=== PATIENT | female | born 1940 | race Caucasian/White ===

== ENCOUNTER → 2018-08-29 | Outpatient (CLI) | payer OTHER ==
[~2018-08-29] MED LIST: ZOFRAN4 MG PO
== END | disposition home or self-care (01) ==
LOC: RESCLI 13:00
DX: E66.9 Obesity, unspecified (principal); R00.1 Bradycardia, unspecified; I10 Essential (primary) hypertension; I25.10 Atherosclerotic heart disease of native coronary artery without angina pectoris; E78.5 Hyperlipidemia, unspecified; G47.00 Insomnia, unspecified; Z76.89 Persons encountering health services in other specified circumstances; Z79.899 Other long term (current) drug therapy; Z88.0 Allergy status to penicillin

== ENCOUNTER 2020-01-15 11:22 | Inpatient (IN) | payer OTHER ==
[~2020-01-15] VITALS: Ht 167.6 cm; Wt 82.2 kg
[2020-01-15] VITALS (9 sets, daily range): BP systolic 114–157; BP diastolic 40–85
[2020-01-15 12:10] LABS: BASO % 0.2 % (0.0-1.0); EOS # 0.1 10*3/uL (0.0-0.4); EOS % 0.5 % (1.0-4.0); HEMATOCRIT 39.3 % (37.0-47.0); LYMPH # 1.1 10*3/uL (1.3-4.4); LYMPH % 6.3 % (27.0-41.0); MEAN CELL VOLUME 93.6 fl (81.0-99.0); MEAN CORPUSCULAR HGB 31.4 pg (27.0-31.0); MEAN CORPUSCULAR HGB CONC 33.6 g/dl (33.0-37.0); MEAN PLATELET VOLUME 10.9 fl (9.6-12.3); MONO # 1.1 10*3/uL (0.1-1.0); MONO % 6.2 % (3.0-9.0); NEUT # 14.7 10*3/uL (2.3-7.9); NEUT % 86.3 % (47.0-73.0); PLATELET COUNT AUTOMATED 201 10*3/uL (130-400); RED CELL DISTRI WIDTH 12.6 % (0-14.5)
[2020-01-15 12:20] LABS: ACT PARTIAL THROMBO TIME 28.1 SECONDS (20.0-32.1)
[2020-01-15 12:25] LABS: ALBUMIN 3.2 gm/dl (3.1-4.5); ALKALINE PHOSPHATASE 107 U/L (45-117); BUN 22 mg/dl (7-24); CHLORIDE 107 mmol/L (98-107); CREATININE 0.79 mg/dL (0.55-1.02); LIPASE 80 U/L (73-393); SGOT/AST 18 IU/L (3-35); SGPT/ALT 21 U/L (12-78); SODIUM 137 mmol/L (136-145)
--- NOTE | 2020-01-15 13:14 | NUR ---
THE PATIENTS HEART RATE INCREASED TO 135. I CHECKED ON THE PATIENT SHE WAS SITTING QUIETLY ON THE BED. SHE DENIES ANY CHEST PAIN. THE ED DOCTOR WAS NOTIFIED
[2020-01-15 13:21] LABS: COLOR YELLOW (YELLOW)
[2020-01-15 13:22] LABS: BILIRUBIN NEGATIVE (NEGATIVE); BLOOD NEGATIVE (NEGATIVE); CLARITY SL CLOUDY (CLEAR); GLUCOSE NEGATIVE (NEGATIVE); KETONE NEGATIVE (NEGATIVE); LEUKO ESTERASE NEGATIVE (NEGATIVE); NITRITE NEGATIVE (NEGATIVE); SPECIFIC GRAVITY 1.015 (1.005-1.030); UROBILINOGEN 0.2 E.U./dl (0.2-1.0)
[2020-01-15] MEDS ORDERED: METOPROLOL SUCC25 M2 PO (13:22)
[2020-01-15] MEDS ORDERED: ATORVASTATIN CA80 M1 PO (13:23)
[2020-01-15] MEDS ORDERED: LISINOPRIL10 M1 PO (13:23)
[2020-01-15] MEDS ORDERED: ZOLPIDEM10 MG PO (13:23)
[2020-01-15] MEDS ORDERED: MELOXICAM15 MG PO (13:23)
[2020-01-15 13:29] LABS: BACTERIA 1+
--- NOTE | 2020-01-15 16:27 | NUR ---
THIS NURSE WENT OVER THE HOME MEDS WITH THE PATIENT
--- NOTE | 2020-01-15 18:10 | NUR ---
A 79, admitted to 4E, under the services of SABA Rodriguez DO with a diagnosis of AFIB WITH RVR. Chief complaint is ABDOMINAL PAIN. Patient arrived via ambulatory from ER. Monitor applied. Initial assessment completed. Vital signs taken and recorded. SABA RODRIGUEZ DO notified of admission to the unit. Orders received. See assessment for past medical history, medications and allergies. Patient and/or family oriented to unit. [facility] visitation policy reviewed. Clothing/patient valuable form completed. ARLEEN RODRIGUEZ
--- NOTE | 2020-01-15 19:14 | NUR ---
NOTIFIED DR WEST OF NEW CONSULT FOR CT RESULTS.
--- NOTE | 2020-01-15 22:28 | NUR ---
PRN TRAZADONE GIVEN PO AT THIS TIME AT PATIENT REQUEST FOR SLEEP AID. A&O X3, CALL LIGHT WITHIN REACH, WILL CONTIMUE TO MONITOR. BED ALARM ON AND FUNCTIONAL
[2020-01-16] VITALS: BP 113/60
--- NOTE | 2020-01-16 04:00 | NUR ---
24 HOUR CHART CHECK COMPLETE
[2020-01-16 06:27] LABS: ALBUMIN 2.8 gm/dl (3.1-4.5); BUN 16 mg/dl (7-24); CHLORIDE 111 mmol/L (98-107); CHOLESTEROL 115 mg/dL (<200); CREATININE 0.75 mg/dL (0.55-1.02); POTASSIUM 3.4 mmol/L (3.5-5.1); SGOT/AST 12 IU/L (3-35); SGPT/ALT 16 U/L (12-78); SODIUM 140 mmol/L (136-145); TRIGLYCERIDES 91 mg/dl (<150); VLDL CHOLESTEROL 18 mg/dL (6-40)
[2020-01-16 06:30] LABS: BASO % 0.2 % (0.0-1.0); EOS # 0.1 10*3/uL (0.0-0.4); EOS % 0.7 % (1.0-4.0); HEMATOCRIT 37.3 % (37.0-47.0); LYMPH # 1.8 10*3/uL (1.3-4.4); LYMPH % 12.8 % (27.0-41.0); MEAN CELL VOLUME 96.1 fl (81.0-99.0); MEAN CORPUSCULAR HGB 31.2 pg (27.0-31.0); MEAN CORPUSCULAR HGB CONC 32.4 g/dl (33.0-37.0); MEAN PLATELET VOLUME 11.6 fl (9.6-12.3); MONO # 1.2 10*3/uL (0.1-1.0); MONO % 8.1 % (3.0-9.0); NEUT % 77.8 % (47.0-73.0); PLATELET COUNT AUTOMATED 186 10*3/uL (130-400); RED BLOOD COUNT 3.88 10*6/uL (4.10-5.10); RED CELL DISTRI WIDTH 13.2 % (0-14.5); WHITE BLOOD COUNT 14.2 10*3/uL (4.8-10.8)
[2020-01-16 06:35] LABS: ALKALINE PHOSPHATASE 66 U/L (45-117); FREE T4 0.98 ng/dl (0.76-1.46); HDL CHOLESTEROL 37 mg/dl (40-60); LDL CHOLESTEROL 60 mg/dL (9-159); THYROID STIM HORMONE (HS) 0.759 uIU/ml (0.358-4.75); TOTAL PROTEIN 6.2 gm/dL (6.4-8.2)
[2020-01-16 08:00] VITALS: BP 119/44
--- NOTE | 2020-01-16 09:00 | NUR ---
[employer]othouse Worker in to talk to patient. Patient states lives at home with her . There are 0 steps in the home. Physician: Dr. London Raman [facility] Home health services: none Patient's level of ADLs: INDEPENDENT Patient has working utilities: yes DME: none Follow-up physician's appointment after d/c: will be made by the hospitalist nurse director upon discharge Does patient want to access PORTAL?: no Discharge plan discussed with patient. She is sitting on the edge of her bed. She lives at home with her . She states she is independent in her ADLs and ambulation. Discussed home health care services and she declines. CM will continue to follow for any discharge planning needs. When medically stable she will be discharged to home. She states she is unsure of transportation on discharge at this time as her no longer drive, her daughter works afternoon shift, and her son works. She states it just depends on when she is discharged as to how she is going to get home. JEAN PAUL WALTER
[2020-01-16 12:00] VITALS: BP 119/59
--- NOTE | 2020-01-16 12:04 | NUR ---
BUTTONER OLIVERA CHECKED XARELTO WITH [facility]. PER PHARMACIST INSURANCE WILL NOT COVER FOR MORE THAN 1 DOSE A DAY, AND IT WOULD BE $375.69 FOR A MONTH SUPPLY. BUTTONER HAD THEM RUN XARELTO 10 BID FOR 20 DAYS. BUTTONER NOTIFIED RN HOSPITALIST COORDINATOR KIARA.
[2020-01-16] MEDS ORDERED: XARE20MG PO (13:21)
[2020-01-16] MEDS ORDERED: METOPROLOL SUCC25 M2 PO (13:21)
[2020-01-16] MEDS ORDERED: FLAGYL500 MG PO (13:24)
[2020-01-16] MEDS ORDERED: CIPRO500 MG PO (13:24)
--- NOTE | 2020-01-16 14:11 | NUR ---
Discharge instructions reviewed with patient/family. Patient receptive and verbalizes understanding. Follow-up care arranged. Written instructions given to patient/family. ARLEEN RODRIGUEZ
== END 2020-01-16 14:11 | disposition home or self-care (01) | DRG 392 ==
LOC: ED 11:22 → EDHOLD 13:43 → 4E 13:43 → EDHOLD 15:00 → 4E 17:00
PROVIDERS: Family Medicine; Registered Nurse; ADMIT Internal Medicine
DX: K29.80 Duodenitis without bleeding (principal); E44.0 Moderate protein-calorie malnutrition; K57.80 Diverticulitis of intestine, part unspecified, with perforation and abscess without bleeding; I10 Essential (primary) hypertension; M79.7 Fibromyalgia; K52.9 Noninfective gastroenteritis and colitis, unspecified; D72.829 Elevated white blood cell count, unspecified; I25.10 Atherosclerotic heart disease of native coronary artery without angina pectoris; E78.2 Mixed hyperlipidemia; E87.6 Hypokalemia; I48.0 Paroxysmal atrial fibrillation; R73.9 Hyperglycemia, unspecified; Z82.49 Family history of ischemic heart disease and other diseases of the circulatory system; Z88.0 Allergy status to penicillin; Z88.2 Allergy status to sulfonamides; Z79.01 Long term (current) use of anticoagulants; Z68.29 Body mass index [BMI] 29.0-29.9, adult; K29.70 Gastritis, unspecified, without bleeding

== ENCOUNTER → 2021-07-07 | Outpatient (CLI) | payer OTHER ==
[~2021-07-07] MED LIST changes: +ATORVASTATIN CA80 M1 PO; +CIPRO500 MG PO; +FLAGYL500 MG PO; +LISINOPRIL10 M1 PO; +MELOXICAM15 MG PO; +METOPROLOL SUCC25 M2 PO; +XARE20MG PO; +ZOLPIDEM10 MG PO
== END | disposition home or self-care (01) ==
LOC: RESCLI 09:10
PROVIDERS: ATTEND Student in an Organized Health Care Education/Training Program
DX: I10 Essential (primary) hypertension (principal); G47.33 Obstructive sleep apnea (adult) (pediatric); I48.91 Unspecified atrial fibrillation; Z79.899 Other long term (current) drug therapy; Z98.890 Other specified postprocedural states

== ENCOUNTER → 2022-08-05 | Outpatient (CLI) | payer OTHER | END | disposition home or self-care (01) | LOC: RESCLI 15:05 | PROVIDERS: ATTEND Internal Medicine | DX: E78.5 Hyperlipidemia, unspecified (principal); G47.00 Insomnia, unspecified; I48.91 Unspecified atrial fibrillation; I10 Essential (primary) hypertension; L20.9 Atopic dermatitis, unspecified; Z82.49 Family history of ischemic heart disease and other diseases of the circulatory system; Z98.890 Other specified postprocedural states; Z79.01 Long term (current) use of anticoagulants; Z79.82 Long term (current) use of aspirin; Z79.899 Other long term (current) drug therapy ==

== ENCOUNTER → 2023-04-18 | Outpatient (CLI) | payer OTHER ==
[2023-04-18 10:14] LABS: BASO % 0.5 % (0.0-1.0); EOS # 0.4 10*3/uL (0.0-0.4); EOS % 4.6 % (1.0-4.0); HEMATOCRIT 39.3 % (37.0-47.0); LYMPH # 2.1 10*3/uL (1.3-4.4); LYMPH % 24.7 % (27.0-41.0); MEAN CELL VOLUME 95.2 fl (81.0-99.0); MEAN CORPUSCULAR HGB 31.7 pg (27.0-31.0); MEAN CORPUSCULAR HGB CONC 33.3 g/dl (33.0-37.0); MEAN PLATELET VOLUME 10.5 fl (9.6-12.3); MONO # 0.6 10*3/uL (0.1-1.0); MONO % 7.7 % (3.0-9.0); NEUT # 5.2 10*3/uL (2.3-7.9); NEUT % 62.3 % (47.0-73.0); PLATELET COUNT AUTOMATED 227 10*3/uL (130-400); RED BLOOD COUNT 4.13 10*6/uL (4.10-5.10); RED CELL DISTRI WIDTH 13.3 % (0-14.5); WHITE BLOOD COUNT 8.4 10*3/uL (4.8-10.8)
[2023-04-18 11:07] LABS: FREE T4 0.96 ng/dl (0.89-1.76)
== END | disposition home or self-care (01) ==
LOC: LAB 09:38
PROVIDERS: ATTEND Internal Medicine
DX: N18.4 Chronic kidney disease, stage 4 (severe) (principal); D63.1 Anemia in chronic kidney disease

== ENCOUNTER 2023-05-06 10:44 | Emergency (ER) | payer OTHER ==
[~2023-05-06] VITALS: Ht 165.1 cm; Wt 77.1 kg
[2023-05-06] MEDS ORDERED: ELIQUIS5 M1 PO (11:03)
[2023-05-06] MEDS ORDERED: SOTALOL80 MG PO (11:08)
[2023-05-06 11:32] LABS: BASO # 0.1 10*3/uL (0.0-0.1); BASO % 0.5 % (0.0-1.0); EOS # 0.4 10*3/uL (0.0-0.4); EOS % 3.8 % (1.0-4.0); HEMATOCRIT 36.7 % (37.0-47.0); LYMPH # 0.7 10*3/uL (1.3-4.4); LYMPH % 7.9 % (27.0-41.0); MEAN CELL VOLUME 94.1 fl (81.0-99.0); MEAN CORPUSCULAR HGB 31.8 pg (27.0-31.0); MEAN CORPUSCULAR HGB CONC 33.8 g/dl (33.0-37.0); MEAN PLATELET VOLUME 10.6 fl (9.6-12.3); MONO # 0.9 10*3/uL (0.1-1.0); MONO % 10.1 % (3.0-9.0); NEUT # 7.2 10*3/uL (2.3-7.9); NEUT % 77.5 % (47.0-73.0); PLATELET COUNT AUTOMATED 243 10*3/uL (130-400); RED CELL DISTRI WIDTH 12.8 % (0-14.5); WHITE BLOOD COUNT 9.3 10*3/uL (4.8-10.8)
[2023-05-06 12:14] LABS: POTASSIUM 4.4 mmol/L (3.4-5.1); TOTAL PROTEIN 6.7 gm/dL (6.0-8.0)
[2023-05-06] MEDS ORDERED: CYCLOBENZAPRINE5 M3 PO (13:42)
== END 2023-05-06 14:04 | disposition home or self-care (01) ==
LOC: ED 10:44
PROVIDERS: Physician Assistant Medical
DX: M62.838 Other muscle spasm (principal); M79.7 Fibromyalgia; I10 Essential (primary) hypertension; I48.91 Unspecified atrial fibrillation; E78.00 Pure hypercholesterolemia, unspecified; E78.5 Hyperlipidemia, unspecified; Z88.0 Allergy status to penicillin; Z88.2 Allergy status to sulfonamides; Z88.8 Allergy status to other drugs, medicaments and biological substances; Z98.890 Other specified postprocedural states; Z95.5 Presence of coronary angioplasty implant and graft; Z90.89 Acquired absence of other organs

== ENCOUNTER → 2023-11-09 | Outpatient (CLI) | payer MEDICARE ==
[~2023-11-09] MED LIST changes: +CYCLOBENZAPRINE5 M3 PO; +ELIQUIS5 M1 PO; +SOTALOL80 MG PO
== END | disposition home or self-care (01) ==
LOC: RESCLI 01:26
PROVIDERS: ATTEND Internal Medicine
DX: I48.0 Paroxysmal atrial fibrillation (principal); I10 Essential (primary) hypertension; E78.5 Hyperlipidemia, unspecified; I25.10 Atherosclerotic heart disease of native coronary artery without angina pectoris; R21 Rash and other nonspecific skin eruption; L57.0 Actinic keratosis; F51.04 Psychophysiologic insomnia; Z95.0 Presence of cardiac pacemaker; Z79.899 Other long term (current) drug therapy; Z98.890 Other specified postprocedural states